=== PATIENT | female | born 1980 | race African-American/Black ===

== ENCOUNTER 2018-05-10 15:56 | Emergency (ER) | payer OTHER ==
[~2018-05-10] VITALS: Ht 160 cm; Wt 85.3 kg
[2018-05-10] MEDS ORDERED: CALCIUM 600 +1 EAC1 PO (16:07)
[2018-05-10] MEDS ORDERED: SYNTHROID150 MCG PO (16:07)
[2018-05-10] MEDS ORDERED: CALCITRIOL0.5 MCG PO (16:08)
[2018-05-10 16:41] LABS: INFLUENZA B ANTIGEN None Detected (None Detect)
[2018-05-10] MEDS ORDERED: OSELB75 PO (16:55)
[2018-05-10 18:07] VITALS: BP 96/56
== END 2018-05-10 18:08 | disposition home or self-care (01) ==
LOC: M.ERS 15:56
PROVIDERS: Nurse Practitioner Family
DX: J11.1 Influenza due to unidentified influenza virus with other respiratory manifestations (principal); R42 Dizziness and giddiness; E89.0 Postprocedural hypothyroidism; F17.210 Nicotine dependence, cigarettes, uncomplicated; Z98.890 Other specified postprocedural states; Z88.2 Allergy status to sulfonamides